=== PATIENT | female | born 1985 | race Caucasian/White ===

== ENCOUNTER 2016-07-24 18:01 | Emergency (ER) | payer OTHER ==
[~2016-07-24] VITALS: Ht 175.3 cm; Wt 97.8 kg
[2016-07-24] MEDS ORDERED: ZOFRAN ODT4 MG PO (18:31)
[2016-07-24 19:06] VITALS: BP 145/92
== END 2016-07-24 19:07 | disposition home or self-care (01) ==
LOC: EME 18:01
DX: S06.0X0A Concussion without loss of consciousness, initial encounter (principal); W22.8XXA Striking against or struck by other objects, initial encounter
CPT/HCPCS: 99281; 99284